=== PATIENT | female | born 1945 | race Caucasian/White ===

== ENCOUNTER → 2016-09-26 | Outpatient (CLI) | payer MEDICARE, OTHER ==
[~2016-09-26] MED LIST: PIROXICAM20 MG PO; PROTONIX40 MG PO; SINGULAIR10 MG PO; ULTRAM 50MG TAB50 MG PO; ZYRTEC-D 5 MG-11 TER PO
== END ==
LOC: RAD 11:48
DX: M25.551 Pain in right hip (principal); Z96.642 Presence of left artificial hip joint